=== PATIENT | female | born 1980 | race Asian ===

== ENCOUNTER 2021-09-08 10:41 | Outpatient (CLI) | payer SELFPAY ==
--- NOTE | ~2021-09-08 | MM_ITS ---
EXAMINATION: MM diag jordy implant BI w jones, US breast BI complete HISTORY: Palpable breast lumps TECHNIQUE: Additional 3-D tomosynthesis images of the breasts were performed and synthetic 2-D images were generated. CAD analysis was submitted and interpreted. High resolution bilateral complete breas t ultrasound was performed. COMPARISON: No prior studies for comparison. BREAST PARENCHYMAL COMPOSITION: The breasts are extremely dense, which lowers the sensitivity of mamm ography FINDINGS: MAMMOGRAPHIC FINDINGS: There is a mass in the upper outer quadrant of the right breast posteriorly corresponding to an area of palpable concern. This mass contains central lucency and is not well seen on medial lateral or CC views. There are multiple scattered masses superiorly in the left breast which are secured by dense f ibroglandular tissue. ULTRASOUND: Complete bilateral US of all 4 quadrants of the breasts and retroareolar region was reviewed. Right breast ultrasound: There are multiple simple cyst of the right breast. At 1:00, 3 cm from the n ipple, there is an oval hypoechoic mass measuring 6 mm maximum dimension with parallel orientation, n o significant posterior features or internal vascularity, likely complicated cysts. At 5:00, 3 cm fro m the nipple there is an oval hypoechoic mass measuring 7 mm, likely complicated cysts. At 6:00, 4 cm from the nipple there is a similar-appearing 5 mm mass, likely complicated cyst. Left breast ultrasound: There are multiple cysts of the left breast. At 1:00, 3 cm from the nipple th ere is an oval hypoechoic mass measuring 1 cm maximum dimension with parallel orientation, no posteri or features and no internal vascularity. At 3:00, 5 cm from the nipple, there is an oval hypoechoic m ass measuring 3 mm with central echogenicity, possibly complicated cyst or benign intramammary lymph node. At 9:00, 4 cm from the nipple there is an 11 mm oval hypoechoic mass with parallel orientation, posterior acoustic enhancement and no internal vascularity, likely benign. IMPRESSION: 1. Probable benign bilateral breast masses. 2. Recommend 6 month follow-up diagnostic bilateral mammogram and ultrasound BI-RADS category 3, probably benign findings. Reviewed, dictated and finalized at location A. [facility]
== END 2021-09-08 10:42 | disposition home or self-care (01) ==
PROVIDERS: Visit Provider Obstetrics & Gynecology
DX: Z12.31 Encounter for screening mammogram for malignant neoplasm of breast (principal)
CPT/HCPCS: 77062; 77066; G0279

== ENCOUNTER → 2021-09-08 12:24 | Outpatient (CLI) | payer SELFPAY ==
--- NOTE | 2021-09-08 14:39 | US_ITS ---
Corrected Report There is a visit number mismatch between the two orders for this. This report has been copy/pasted so that both orders have the report. -BJO EXAMINATION: MM diag jordy implant BI w jones, US breast BI complete HISTORY: Palpable breast lumps TECHNIQUE: Additional 3-D tomosynthesis images of the breasts were performed and synthetic 2-D images were generated. CAD analysis was submitted and interpreted. High resolution bilateral complete breast ultrasound was performed. COMPARISON: No prior studies for comparison. BREAST PARENCHYMAL COMPOSITION: The breasts are extremely dense, which lowers the sensitivity of mammography FINDINGS: MAMMOGRAPHIC FINDINGS: There is a mass in the upper outer quadrant of the right breast posteriorly corresponding to an area of palpable concern. This mass contains central lucency and is not well seen on medial lateral or CC views. There are multiple scattered masses superiorly in the left breast which are secured by dense fibroglandular tissue. ULTRASOUND: Complete bilateral US of all 4 quadrants of the breasts and retroareolar region was reviewed. Right breast ultrasound: There are multiple simple cyst of the right breast. At 1:00, 3 cm from the nipple, there is an oval hypoechoic mass measuring 6 mm maximum dimension with parallel orientation, no significant posterior features or internal vascularity, likely complicated cysts. At 5:00, 3 cm from the nipple there is an oval hypoechoic mass measuring 7 mm, likely complicated cysts. At 6:00, 4 cm from the nipple there is a similar-appearing 5 mm mass, likely complicated cyst. Left breast ultrasound: There are multiple cysts of the left breast. At 1:00, 3 cm from the nipple there is an oval hypoechoic mass measuring 1 cm maximum dimension with parallel orientation, no posterior features and no internal vascularity. At 3:00, 5 cm from the nipple, there is an oval hypoechoic mass measuring 3 mm with central echogenicity, possibly complicated cyst or benign intramammary lymph node. At 9:00, 4 cm from the nipple there is an 11 mm oval hypoechoic mass with parallel orientation, posterior acoustic enhancement and no internal vascularity, likely benign. IMPRESSION: 1. Probable benign bilateral breast masses. 2. Recommend 6 month follow-up diagnostic bilateral mammogram and ultrasound BI-RADS category 3, probably benign findings. D NEUROLOGIST DAGO
== END ==
PROVIDERS: Visit Provider Obstetrics & Gynecology
DX: R92.8 Other abnormal and inconclusive findings on diagnostic imaging of breast (principal); N63.12 Unspecified lump in the right breast, upper inner quadrant; N63.14 Unspecified lump in the right breast, lower inner quadrant; N63.15 Unspecified lump in the right breast, overlapping quadrants; N60.02 Solitary cyst of left breast; N63.25 Unspecified lump in the left breast, overlapping quadrants
CPT/HCPCS: 76641